=== PATIENT | female | born 1980 | race African-American/Black ===

== ENCOUNTER 2018-02-07 03:35 | Inpatient (IN) | payer OTHER ==
[2018-02-07] MEDS ORDERED: OXYTOCIN 10 UNITS/ML VIAL IM ONE (04:30)
[2018-02-07] MEDS ORDERED: BISACODYL 10 MG SUPP.RECT RC PRN (04:33)
[2018-02-07] MEDS ORDERED: BENZOCAINE 20% 57 GM BOTTLE TP PRN (04:33)
[2018-02-07] MEDS ORDERED: BENZOCAINE 28 GM HEMORRHOIDAL OINTMENT TP PRN (04:33)
[2018-02-07] MEDS ORDERED: METHYLERGONOVINE MALEATE 0.2 MG/1 ML AMP IM PRN (04:33)
[2018-02-07] MEDS ORDERED: WITCH HAZEL 50% (TUCKS) 40 PAD/JAR PAD TP PRN (04:33)
--- NOTE | 2018-02-07 04:44 | HP ---
Past Medical History - Primary Care Physician PCP:: Joe Oro - Admission Chief Complaint: 37yo P1 with at EGA 30w1d admitted with spontaneous labor and quickly progressed to delivery. 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: No: Alzheimer's, CVA, Dementia, Migraine, Multiple Sclerosis, Peripheral Neuropathy, Parkinson's, Seizure, Syncope, TIA, Vertigo, Other Cardiovascular: No: AFIB, Aneurysm, Aortic Insufficiency, Aortic Stenosis, CAD, CHF, Deep Vein Thrombosis, HTN, Hyperlipdemia, GA, Mitral Insufficiency, Mitral Stenosis, Murmur, Pulmonary Hypertension, Other Pulmonary: No: Asthma, Bronchitis, Cancer, COPD, O2 Dependent, Pneumonia, Previously Intubated, Pulmonary Embolus, Pulmonary Fibrosis, Sleep Apnea, Other Gastrointestinal: No: Ascites, Cancer, Constipation, Crohn's Disease, Diverticulitis, Diverticulosis, Esophageal Varices, Gastritis, GERD, GI Bleed, Hemorrhoids, Hiatal Hernia, Inflamatory Bowel Disease, Irritable Bowel Disease, Pancreatitis, Peptic Ulcer Disease, Ulcerative Colitis, Other Hepatobiliary: No: Cirrhosis, Cholelithiasis, Cholecystitis, Choledocholithiasis , Hepatitis A, Hepatitis B, Hepatitis C, Other Renal/: No: Renal Failure, Renal Inusuff, BPH, Cancer, Hematuria, Hemodialysis , Neurogenic Bladder, Renal Calculi, UTI, Other Reproductive: No: Ectopic , Endometriosis, Fibroids, PID, Polycystic Ovary Syndrome, Postmenopausal, Other ...: 2 ...Para: 1 () ... Weeks Gestation by Dates: 39.1 Heme/Onc: No: Anemia, B12 Deficiency, Bleeding Disorder, Cancer, Current Chemotherapy, Current Radiation Therapy, Hemochromatosis, Hypercoaguable State, Myeloproliferative Synd, Sickle Cell Disease, Sickle Cell Trait, Thrombocytopenia, Other Infectious Disease: No: AIDS, C-Diff, Herpes Zoster, HIV, MRSA, STD's, Tuberculosis, VREF, Other Psych: No: Addictions, Anxiety, Bipolar, Depression, Panic, Psychosis, Schizophrenia, Other Musculoskeletal: No: Bursitis, Chronic low back pain, Hemiparesis, Hemiplegia, Osteoarthritis, Paraplegia, Other Rheumatology: No: Fibromyalgia, Gout, Lupus, Rheumatoid Arthritis, Sarcoidosis, Vasculitis, Other ENT: No: Allergic Rhinitis, Sinusitis, Other Endocrine: No: Buchanan's Disease, Luba's Disease, Diabetes Insipidus, Diabetes Mellitus, Hyperparathyroidism, Hyperthyroidism, Hypothyroidism, Osteopenia, SIADH, Other - Past Surgical History Past Surgical History: Yes: None Hx Myomectomy: No Hx Transabdominal Cerclage: No - Smoking History Smoking history: Never smoked Have you smoked in the past 12 months: No - Alcohol/Substance Use Hx Alcohol Use: No History of Substance Use: reports: None - Social History Usual Living Arrangement: Yes: With Spouse, With Child History of Recent Travel: No Family Disease History - Family Disease History Family History: Unremarkable Review of Systems - Review of Systems Constitutional: reports: Other (Active labor) Eyes: reports: No Symptoms HENT: reports: No Symptoms Neck: reports: No Symptoms Cardiovascular: reports: No Symptoms Respiratory: reports: No Symptoms Gastrointestinal: reports: No Symptoms Genitourinary: reports: No Symptoms Breasts: reports: No Symptoms Reported Musculoskeletal: reports: No Symptoms Integumentary: reports: No Symptoms Neurological: reports: No Symptoms Endocrine: reports: No Symptoms Hematology/Lymphatic: reports: No Symptoms Psychiatric: reports: No Symptoms Pain Intensity: 10 Physical Exam - Maternity Constitutional: Yes: Well Nourished, No Distress, Calm Eyes: Yes: WNL, Conjunctiva Clear, EOM Intact HENT: Yes: WNL, Atraumatic, Normocephalic Neck: Yes: WNL, Supple, Trachea Midline Cardiovascular: Yes: WNL, Regular Rate and Rhythm Lungs: Clear to auscultation, Normal air movement Breast(s): Yes: WNL - Abdominal Exam/OB Fundal Height: 39 Number of Fetuses: Single Presentation: Vertex Contractions: Yes Regularity: Regular Intensity: Mod/Strong Monitor Mode: External Heart Rate (range): 135 Heart Rate Location: Midline Category: I Accelerations: Non-Uniform Decelerations: Variable - Vaginal Exam/OB Dilatation (cm): 10 Presentation: Vertex/Position - Physical Exam Musculoskeletal: Yes: WNL Extremities: Yes: WNL Edema: No Integumentary: Yes: WNL Deep Tendon Reflex Grade: Normal +2 ...Motor Strength: WNL Psychiatric: Yes: WNL, Alert, Oriented Hemorrhage Risk Assessment - Risk Factors Medium Risk Factors: Yes: None High Risk Factors: Yes: None Risk Score: 1 Risk Level: Medium Risk Imaging - Results Ultrasound: Report Reviewed Assessment/Plan 37yo P1 with at EGA 30w1d admitted with spontaneous labor and quickly progressed to delivery. Pt delivered live baby girl w/o complications. A small perineal laceration was repaired with good hemostasis.
[2018-02-07] MEDS ORDERED: OXYTOCIN 20 UNITS in 0.9% NS 20 UNIT/1,000 ML INFUS.BAG IV SCH (04:45)
[2018-02-07] MEDS: ACETAMINOPHEN 325 MG TABLET (FP) PO PRN ×3 (05:15→13:53)
[2018-02-07] MEDS: IBUPROFEN 600 MG TABLET (FP) PO PRN ×3 (05:15→13:52)
[2018-02-07 05:19] LABS: BASO % 0.5 % (0-2.0); EOS % 0.5 % (0-4.5); HEMOGLOBIN 12.2 GM/dL (10.7-15.3); LYMPH % 23.4 % (8-40); MCH 29.8 pg (25.7-33.7); MCHC 33.1 g/dl (32.0-36.0); MEAN CELL VOLUME 90.2 fl (80-96); MONO % 6.9 % (3.8-10.2); NEUT % 68.7 % (42.8-82.8); RDW 13.9 % (11.6-15.6); WHITE BLOOD COUNT 8.8 K/mm3 (4.0-10.0)
[2018-02-07 05:32] LABS: INR 0.92 (0.83-1.09); PROTHROMBIN TIME (PATIENT) 10.9 SEC (9.7-13.0)
[2018-02-07 05:34] LABS: ACTIVATED PTT 19.6 SECONDS (25.2-36.5)
[2018-02-07 05:55] LABS: MEAN PLT VOLUME 12.6 fl (7.5-11.1); PLATELET COUNT 91 K/MM3 (134-434); PLATELET ESTIMATE DECREASED
[2018-02-07 06:02] LABS: ANION GAP 10 MMOL/L (8-16); BLOOD UREA NITROGEN 10 mg/dL (7-18); CALCIUM 8.2 mg/dL (8.5-10.1); CHLORIDE 104 mmol/L (98-107); CO2 21 mmol/L (21-32); CREATININE 0.6 mg/dL (0.55-1.3); GLUCOSE,RANDOM 106 mg/dL (74-106); SODIUM 136 mmol/L (136-145)
[2018-02-07 06:10] VITALS: BMI 29.3
[2018-02-07] MEDS: PRENATAL VITAMINS W/ FOLIC ACID TABLET (FP) PO SCH (10:00)
[2018-02-08] MEDS: IBUPROFEN 600 MG TABLET (FP) PO PRN ×2 (00:53→14:22)
[2018-02-08] MEDS: ACETAMINOPHEN 325 MG TABLET (FP) PO PRN ×2 (00:53→14:21)
--- NOTE | 2018-02-08 08:11 | PN ---
Progress Note (short form) - Note Progress Note: ppd1 doing well, no excess vaginal bleeding CBC, BMP 02/07/18 04:25 02/07/18 04:25 Last Vital Signs Temp Pulse Resp BP Pulse Ox 98.4 F 73 20 111/75 100 02/07/18 20:47 02/07/18 20:47 02/07/18 20:47 02/07/18 20:47 02/07/18 05:35 abdomen soft, non tender , uterus firm lochia mild no calf tenderness plan ambulate ,for d/c home in am
[2018-02-08] MEDS: PRENATAL VITAMINS W/ FOLIC ACID TABLET (FP) PO SCH (10:09)
[2018-02-08 11:11] LABS: HBsAG SCREEN Negative (Negative)
[2018-02-08] MEDS ORDERED: SENNOSIDES/DOCUSATE COMBO (SENNA PLUS) TABLET (UD) PO PRN (22:00)
[2018-02-09] MEDS: IBUPROFEN 600 MG TABLET (FP) PO PRN (06:32)
[2018-02-09] MEDS: ACETAMINOPHEN 325 MG TABLET (FP) PO PRN (06:32)
[2018-02-09] MEDS: PRENATAL VITAMINS W/ FOLIC ACID TABLET (FP) PO SCH (09:39)
[2018-02-09 10:36] VITALS: BP 132/82; PULSE 65; TEMP 98.6
--- NOTE | 2018-02-09 13:01 | DS ---
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: Vital Signs Temperature 98.6 F 02/09/18 09:00 Pulse Rate 65 02/09/18 09:00 Respiratory Rate 20 02/09/18 09:00 Blood Pressure 132/82 02/09/18 09:00 O2 Sat by Pulse Oximetry (%) 100 02/07/18 05:35 Constitutional: Yes: Well Nourished, No Distress, Calm Eyes: Yes: WNL, Conjunctiva Clear, EOM Intact HENT: Yes: WNL, Atraumatic, Normocephalic Neck: Yes: WNL, Supple, Trachea Midline Cardiovascular: Yes: WNL, Regular Rate and Rhythm Respiratory: Yes: WNL, Regular, CTA Bilaterally Gastrointestinal: Yes: WNL ...Rectal Exam: Yes: WNL Renal/: Yes: WNL ....Post : Yes: Uterus firm, Uterus non-tender, Slight lochia rubra Breast(s): Yes: WNL Musculoskeletal: Yes: WNL Extremities: Yes: WNL Edema: No Integumentary: Yes: WNL Neurological: Yes: WNL, Alert, Oriented ...Motor Strength: WNL Psychiatric: Yes: WNL, Alert, Oriented Labs: CBC, BMP 02/07/18 04:25 02/07/18 04:25 Delivery - Delivery Vaginal Delivery: Spontaneous Type of Anesthesia: None Episiotomy/Laceration: 1st degree EBL (cc): 250 Delivery, Single - Stages of Labor Date 1st Stage Initiatied: 02/07/18 Time 1st Stage Initiated: 01:30 Date 2nd Stage Initiated: 02/07/18 Time 2nd Stage Initiated: 04:15 Date of Delivery: 02/07/18 Time of Delivery: 04:21 Time Placenta Delivered: 04:23 Placenta: Yes: Spontaneous - Condition of Orthopedic Physician Assistant/Broadcast Operations Engineer Present: No Infant Gender: Female Weight: 7 lb 3 oz Position: Left, OA Total Hours ROM (Hrs/Mins): 6m - 1 Minute Total Score: 9 5 Minutes Total Score: 9 - [place] Feeding Plan Initial Plan: Elected not to breastfeed exclusively throughout hospitalization Discharge Summary Reason For Visit: LABOR Procedures: Principal: Condition: Good - Instructions Diet, Activity, Other Instructions: regular diet , no intercourse, follow up office 4 weeks , if fever pain , heavy vaginal bleeding call MD Referrals: Joe Oro MD [Staff Physician] - Disposition: HOME - Home Medications Comprehensive Discharge Medication List: Ambulatory Orders Ibuprofen [Motrin -] 600 mg PO QID #28 tablet 02/07/18 Vit 108/Iron/Folic AC [ One Tablet] 1 tab PO DAILY 02/07/18
== END 2018-02-09 12:50 | disposition home or self-care (01) | DRG 807 ==
LOC: JLDR 03:35 → J3W 07:47
PROVIDERS: ADMIT Obstetrics & Gynecology; ATTEND Obstetrics & Gynecology
PROC: 10E0XZZ Delivery of Products of Conception, External Approach (ICD-10-PCS; principal; 2018-02-07)
PROC: 0HQ9XZZ Repair Perineum Skin, External Approach (ICD-10-PCS; 2018-02-07)
PROC: 0W8NXZZ Division of Female Perineum, External Approach (ICD-10-PCS; 2018-02-07)
DX: O70.0 First degree perineal laceration during delivery (principal); Z37.0 Single live birth; Z3A.38 38 weeks gestation of pregnancy
CPT/HCPCS: 36415; 59409; 80048; 85025; 85610; 85730; 86593; 86762; 86850; 86900; 86901; 87340; 87389